=== PATIENT | male | born 1985 | race African-American/Black ===

== ENCOUNTER 2017-04-24 23:08 | Emergency (ER) | payer OTHER ==
[~2017-04-24] VITALS: Ht 180.3 cm; Wt 70.5 kg
[2017-04-24 23:10] VITALS: BP 141/87; PULSE 112; RESP 16; TEMP 97.9; O2SAT 97
[2017-04-24] MEDS ORDERED: LIDOCAINE 1%/EPINEPHrine 1:100,000 SOLN 20 ML VIAL ONE (23:29)
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
[2017-04-24] MEDS: LIDOCAINE 1%/EPINEPHrine 1:100,000 SOLN 20 ML VIAL INFIL ONE ×2 (23:43→23:44)
[2017-04-24] MEDS ORDERED: TETANUS/DIPHTHERIA TOXOID ADULT 0.5 ML VIAL IM ONE (23:45)
[2017-04-24] MEDS ORDERED: NAPROXEN 500 MG TAB PO ONE (23:45)
== END 2017-04-25 00:39 ==
LOC: NEPD 23:08
DX: S51.812A Laceration without foreign body of left forearm, initial encounter (principal); W26.0XXA Contact with knife, initial encounter; Z23 Encounter for immunization; Z72.0 Tobacco use
CPT/HCPCS: 12004; 90471; 90714

== ENCOUNTER 2017-10-24 04:08 | Emergency (ER) | payer SELFPAY ==
[~2017-10-24] VITALS: Ht 182.9 cm; Wt 75.0 kg
[2017-10-24 04:12] VITALS: BP 145/77; PULSE 108; RESP 18; TEMP 98.5; O2SAT 100
[2017-10-24 04:45] VITALS: RESP 18
[2017-10-24] MEDS ORDERED: SODIUM CHLOR 0.9% 1000 ML INJ 1,000 ML IV ONE (04:45)
[2017-10-24 04:55] LABS: AUTOMATED NEUTROPHIL # 3.4 TH/MM3 (1.8-7.7); BASOPHIL % 0.9 % (0.0-2.0); EOSINOPHIL % 0.5 % (0.0-4.0); HEMATOCRIT 43.7 % (39.0-51.0); HEMOGLOBIN 14.6 GM/DL (13.0-17.0); LYMPH % 24.9 % (9.0-44.0); LYMPHOCYTE # 1.3 TH/MM3 (1.0-4.8); MEAN CELL VOLUME 79.7 FL (80.0-100.0); MEAN CORPUSCULAR HEMOGLOBIN 26.6 PG (27.0-34.0); MEAN CORPUSCULAR HGB CONC 33.4 % (32.0-36.0); MEAN PLATELET VOLUME 9.5 FL (7.0-11.0); MONO % 9.9 % (0.0-8.0); MONOCYTE # 0.5 TH/MM3 (0-0.9); NEUT % 63.8 % (16.0-70.0); PLATELET COUNT 227 TH/MM3 (150-450); RED BLOOD COUNT 5.48 MIL/MM3 (4.50-5.90); RED CELL DISTRIBUTION WIDTH 14.1 % (11.6-17.2); WHITE BLOOD COUNT 5.3 TH/MM3 (4.0-11.0)
--- NOTE | 2017-10-24 04:59 | RADRPT ---
EXAM DATE/TIME: 10/24/2017 04:44 [place] COMPARISON: CHEST SINGLE AP, April 12, 2016, 22:23. INDICATIONS : Cough. MEDICAL HISTORY : None. SURGICAL HISTORY : None. ENCOUNTER: Initial ACUITY: 1 day PAIN SCORE: 0/10 LOCATION: Bilateral chest FINDINGS: A single view of the chest demonstrates the lungs to be symmetrically aerated without evidence of mas s, infiltrate or effusion. The cardiomediastinal contours are unremarkable. Osseous structures are intact. CONCLUSION: No acute disease. Nguyễn Liu MD on October 24, 2017 at 4:56 Board Certified Radiologist. This report was verified electronically.
[2017-10-24 05:28] LABS: ALBUMIN 4.3 GM/DL (3.4-5.0); BICARBONATE 23.6 MEQ/L (21.0-32.0); BLOOD UREA NITROGEN 15 MG/DL (7-18); CALCIUM 8.9 MG/DL (8.5-10.1); CHLORIDE 106 MEQ/L (98-107); GLUCOSE,RANDOM 93 MG/DL (74-106); MAGNESIUM 2.2 MG/DL (1.5-2.5); SODIUM (NA) 140 MEQ/L (136-145)
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
[2017-10-24 05:32] LABS: ALKALINE PHOSPHATASE 48 U/L (45-117); ALT (GPT) 43 U/L (12-78); AST (GOT) 24 U/L (15-37); CREATININE 1.51 MG/DL (0.60-1.30); GLOMERULAR FILTRATION RATE 66 ML/MIN (>89); TOTAL BILIRUBIN ADULT 0.6 MG/DL (0.2-1.0); TROPONIN I LESS THAN 0.02 NG/ML (0.02-0.05)
[2017-10-24] MEDS ORDERED: VIST25CA PO (06:16)
[2017-10-24 06:27] LABS: ACETAMINOPHEN LESS THAN 2.0 MCG/ML (10.0-30.0)
== END 2017-10-24 06:59 | disposition home or self-care (01) ==
LOC: NEPE 04:08
DX: G47.00 Insomnia, unspecified (principal); F17.210 Nicotine dependence, cigarettes, uncomplicated; R00.0 Tachycardia, unspecified
CPT/HCPCS: 71045; 80053; 80307; 82550; 82552; 83735; 84484; 85025; 96360; 99284; J7030

== ENCOUNTER 2017-10-24 09:43 | Emergency (ER) | payer OTHER ==
[~2017-10-24] VITALS: Ht 180.3 cm; Wt 75.5 kg
[~2017-10-24 09:43] MED LIST: VIST25CA PO
[2017-10-24 09:55] VITALS: BP 136/87; PULSE 120; RESP 16; TEMP 98; O2SAT 98
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
[2017-10-24 10:41] LABS: AUTOMATED NEUTROPHIL # 3.6 TH/MM3 (1.8-7.7); BASOPHIL # 0.1 TH/MM3 (0-0.2); EOSINOPHIL % 0.7 % (0.0-4.0); HEMOGLOBIN 14.9 GM/DL (13.0-17.0); LYMPH % 20.9 % (9.0-44.0); LYMPHOCYTE # 1.1 TH/MM3 (1.0-4.8); MEAN CELL VOLUME 79.7 FL (80.0-100.0); MEAN CORPUSCULAR HEMOGLOBIN 26.4 PG (27.0-34.0); MEAN CORPUSCULAR HGB CONC 33.2 % (32.0-36.0); MEAN PLATELET VOLUME 9.6 FL (7.0-11.0); MONO % 9.5 % (0.0-8.0); MONOCYTE # 0.5 TH/MM3 (0-0.9); NEUT % 67.9 % (16.0-70.0); PLATELET COUNT 226 TH/MM3 (150-450); RED BLOOD COUNT 5.64 MIL/MM3 (4.50-5.90); RED CELL DISTRIBUTION WIDTH 14.1 % (11.6-17.2); WHITE BLOOD COUNT 5.3 TH/MM3 (4.0-11.0)
[2017-10-24 11:36] LABS: BLOOD UREA NITROGEN 15 MG/DL (7-18)
[2017-10-24 11:37] LABS: ALBUMIN 4.3 GM/DL (3.4-5.0); ALKALINE PHOSPHATASE 48 U/L (45-117); ALT (GPT) 42 U/L (12-78); AST (GOT) 26 U/L (15-37); CHLORIDE 106 MEQ/L (98-107); CREATININE 1.37 MG/DL (0.60-1.30); GLOMERULAR FILTRATION RATE 74 ML/MIN (>89); GLUCOSE,RANDOM 87 MG/DL (74-106); SODIUM (NA) 139 MEQ/L (136-145); TOTAL BILIRUBIN ADULT 0.8 MG/DL (0.2-1.0); TOTAL PROTEIN 7.9 GM/DL (6.4-8.2)
[2017-10-24 11:38] LABS: ACETAMINOPHEN LESS THAN 2.0 MCG/ML (10.0-30.0); BICARBONATE 23.4 MEQ/L (21.0-32.0)
[2017-10-24 12:38] VITALS: PULSE 100
[2017-10-24] MEDS ORDERED: LORazepam 1 MG TAB PO ONE (13:00)
[2017-10-24 18:00] VITALS: BP 157/81; PULSE 85; RESP 20; TEMP 98.8; O2SAT 98
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
== END 2017-10-24 20:34 | disposition home or self-care (01) ==
LOC: NEPD 09:43 → NEPJ 20:34
DX: F43.20 Adjustment disorder, unspecified (principal); F17.210 Nicotine dependence, cigarettes, uncomplicated
CPT/HCPCS: 80053; 84443; 85025; 99283